=== PATIENT | female | born 1965 | race Two or more races ===

== ENCOUNTER 2020-10-11 22:34 | Emergency (ER) | payer OTHER, SELFPAY ==
[~2020-10-11] VITALS: Ht 152.4 cm; Wt 57.9 kg
--- NOTE | 2020-10-11 23:48 | NUR ---
PT AMBULATORY WITH STEADY GAIT TO ROOM
--- NOTE | 2020-10-11 23:48 | NUR ---
MEDICAL RECORDS CODER: PT. TO ROOM FROM LOBBY AT THIS TIME.
[2020-10-11 23:50] LABS: BASOPHILS % (AUTO) 1 % (0-1); EOSINOPHILS % (AUTO) 2 % (1-7); LYMPHOCYTES % (AUTO) 16 % (22-44); MEAN CORPUSCULAR HGB CONC 32.1 g/dL (32.4-35.8); MEAN PLATELET VOLUME 8.2 fL (7.4-10.4); MONOCYTES % (AUTO) 12 % (2-9); NEUTROPHILS % (AUTO) 70 % (42-75); PLATELET COUNT 123 x10^3/uL (130-400); RED BLOOD COUNT 4.19 x10^6/uL (3.82-5.3); RED CELL DISTRIBUTION WIDTH 19.6 % (9.6-15.2)
[2020-10-11 23:59] LABS: ALBUMIN 2.9 g/dL (3.4-5.0); ANION GAP 6 mmol/L (5-15); CALCIUM 8.5 mg/dL (8.5-10.1); CHLORIDE 95 mmol/L (98-107); CREATININE 4.08 mg/dL (0.55-1.02)
[2020-10-12 00:16] LABS: TROPONIN I 0.021 ng/mL (0.000-0.045)
[2020-10-12] MEDS ORDERED: LISINOPRIL 10 MG TABLET ONE (00:19)
[2020-10-12] MEDS ORDERED: LORazepam 1MG TABLET ONE (00:20)
[2020-10-12] MEDS ORDERED: LISINOPRIL 10 MG TABLET PO ONE (00:30)
[2020-10-12] MEDS ORDERED: LORazepam 1MG TABLET PO ONE (00:30)
[2020-10-12 01:04] VITALS: BP 208/93
--- NOTE | 2020-10-12 01:18 | NUR ---
PROVIDER MADE AWARE OF ELEVATED BP
--- NOTE | 2020-10-12 01:20 | NUR ---
BREAKFAST SUPERVISOR MADE AWARE OF ELEVATED BP AFTER ANIMAL SHELTER MANAGER AND RETAKING BP READING
--- NOTE | 2020-10-12 02:42 | NUR ---
FAMILY AND PT EDUCATED ON THE IMPORTANCE OF ESTABLISHING PCP TO BETTER MONITOR BP AND MAKE MED ADJUSTMENTS NEEDED TO BEST FIT PT NEEDS
== END 2020-10-12 02:44 | disposition home or self-care (01) ==
LOC: ED 23:00
DX: G47.09 Other insomnia (principal); G25.81 Restless legs syndrome; R07.89 Other chest pain; I10 Essential (primary) hypertension; E11.9 Type 2 diabetes mellitus without complications; Z99.2 Dependence on renal dialysis
CPT/HCPCS: 36415; 71045; 80048; 82040; 83880; 84484; 85025; 93005; 99285

== ENCOUNTER 2020-10-18 11:41 | Emergency (ER) | payer SELFPAY ==
--- NOTE | 2020-10-18 11:59 | NUR ---
EKG IN TRIAGE.
[2020-10-18 12:31] LABS: MEAN CORPUSCULAR HEMOGLOBIN 29.2 pg (27.0-34.8); MEAN CORPUSCULAR HGB CONC 31.6 g/dL (32.4-35.8); MEAN PLATELET VOLUME 9.6 fL (7.4-10.4); PLATELET COUNT 109 x10^3/uL (130-400); RED BLOOD COUNT 4.55 x10^6/uL (3.82-5.3); RED CELL DISTRIBUTION WIDTH 18.9 % (9.6-15.2)
[2020-10-18 12:39] LABS: ALANINE AMINOTRANSFERASE 43 U/L (12-78); ALBUMIN 2.9 g/dL (3.4-5.0); ANION GAP 11 mmol/L (5-15); CALCIUM 9.1 mg/dL (8.5-10.1); CHLORIDE 95 mmol/L (98-107); CREATININE 7.49 mg/dL (0.55-1.02)
[2020-10-18 12:43] LABS: ALKALINE PHOSPHATASE 257 U/L (45-117); TOTAL PROTEIN 7.9 g/dL (6.4-8.2); TROPONIN I < 0.015 ng/mL (0.000-0.045)
[2020-10-18 12:44] LABS: BILIRUBIN,TOTAL 0.5 mg/dL (0.2-1.0)
[2020-10-18 13:44] LABS: <PLATELET ESTIMATE> DECREASED; <PLT MORPHOLOGY> NORMAL PLT MORPH; ANISOCYTOSIS 1+; BASOS#(MANUAL) 0.12 x10^3/uL (0-0.1); BASOS% (MANUAL) 2 % (0-1); LYMPHS% (MANUAL) 20 % (22-44); MONOS% (MANUAL) 10 % (2-9); SEG#(MANUAL) 4.08 x10^3/uL (1.8-6.8); SEGS% (MANUAL) 68 % (42-75)
--- NOTE | 2020-10-18 14:12 | NUR ---
career representative: Pt ambulatory to room from lobby at this time.
--- NOTE | 2020-10-18 14:25 | NUR ---
SUDDEN ONSET OF CHEST PAIN WHILE RESTING LAST NIGHT. WORSE WITH POSITION CHANGES. DIALYSIS PT MWF. PT BENINESE SPEAKING ONLY. DAUGHTER ACTING GLOBAL ACCOUNT EXECUTIVE. PER DAUGHTER PT TO SEE CARDIOLOGY IN A FEW WEEK FOR SOME "HEART TESTS" AFTER PT WAS FOUND TO HAVE SMALL MUR MUR AT PCP. PT TO ROOM WITH STEADY GAIT. ATTACHED TO MONITORS. [facility] [place] [facility] [place]
[2020-10-18] MEDS ORDERED: ACETAMINOPHEN 500 MG TABLET ONE (15:25)
[2020-10-18] MEDS ORDERED: ACETAMINOPHEN 500 MG TABLET PO ONE (15:30)
--- NOTE | 2020-10-18 15:43 | NUR ---
CONTINUED ELEVATED B/P DISCUSSED WITH DR. MICHAEL. HE RESPONDED "SHE IS GOING TO HD, THEY WILL ADRESS THE ISSUE. WE RULED OUT ANY MAJOR CARDIAC ISSUE. SHE WILL BE OK GOING HOME IF YOU AGREE." PATIENT DISCHARGED AFTER THOROUGH DISCUSION ON IMPORTANCE OF F/U WITH PCP/SWIMMING POOL ATTENDANT AND RETURN TO ER IF NEEDED (STROKE PREVENTION) PATIENT/FAMILY-TEACH BACK SUCCESSFUL
[2020-10-18 15:46] VITALS: BP 193/93
== END 2020-10-18 15:47 | disposition home or self-care (01) ==
LOC: ED 14:40
DX: R07.89 Other chest pain (principal); I10 Essential (primary) hypertension; E11.9 Type 2 diabetes mellitus without complications
CPT/HCPCS: 36415; 71045; 80053; 83690; 84484; 85025; 93005; 99285

== ENCOUNTER 2020-12-17 23:46 | Inpatient (IN) | payer MEDICAID ==
[~2020-12-17] VITALS: Ht 152.4 cm; Wt 62.5 kg
--- NOTE | 2020-12-17 23:55 | NUR ---
EKG DONE IN TRIAGE.
[2020-12-18] VITALS (12 sets, daily range): BP systolic 129–207; BP diastolic 70–92
[2020-12-18 00:48] LABS: BASOPHILS % (AUTO) 0 % (0-1); EOSINOPHILS % (AUTO) 2 % (1-7); LYMPHOCYTES % (AUTO) 13 % (22-44); MEAN CORPUSCULAR HEMOGLOBIN 29.6 pg (27.0-34.8); MEAN CORPUSCULAR HGB CONC 32.9 g/dL (32.4-35.8); MEAN PLATELET VOLUME 9.9 fL (7.4-10.4); MONOCYTES % (AUTO) 10 % (2-9); NEUTROPHILS % (AUTO) 75 % (42-75); PLATELET COUNT 122 x10^3/uL (130-400); RED BLOOD COUNT 3.68 x10^6/uL (3.82-5.3); RED CELL DISTRIBUTION WIDTH 19.3 % (9.6-15.2)
[2020-12-18 01:02] LABS: ALANINE AMINOTRANSFERASE 42 U/L (12-78); ALBUMIN 2.5 g/dL (3.4-5.0); ANION GAP 12 mmol/L (5-15); CALCIUM 8.7 mg/dL (8.5-10.1); CHLORIDE 96 mmol/L (98-107); CREATININE 6.93 mg/dL (0.55-1.02)
[2020-12-18 01:19] LABS: ALKALINE PHOSPHATASE 257 U/L (45-117); BILIRUBIN,TOTAL 0.5 mg/dL (0.2-1.0); TOTAL PROTEIN 7.2 g/dL (6.4-8.2); TROPONIN I < 0.015 ng/mL (0.000-0.045)
[2020-12-18] MEDS ORDERED: FUROSEMIDE 20 MG/2 ML ONE (02:50)
[2020-12-18] MEDS ORDERED: SODIUM ZIRCONIUM CYCLOSILICATE 10 GM PO ONE (03:00)
[2020-12-18] MEDS ORDERED: FUROSEMIDE 20 MG/2 ML IV ONE (03:00)
[2020-12-18] MEDS ORDERED: DEXTROSE 50%, 50ML SYRINGE IVPush PRN (03:30)
[2020-12-18] MEDS ORDERED: DEXTROSE 4 GM TAB.CHEW PO PRN (03:30)
[2020-12-18] MEDS ORDERED: GLUCAGON 1 MG IM PRN (03:30)
[2020-12-18] MEDS ORDERED: POLYETHYLENE GLYCOL 17 GM PACKET PO PRN (03:30)
[2020-12-18] MEDS ORDERED: HYDROmorphone 2 MG/ML, 1ML IVPush PRN (03:30)
[2020-12-18] MEDS ORDERED: FUROSEMIDE 40 MG/4 ML IV ONE (03:30)
[2020-12-18] MEDS ORDERED: LABETALOL 5MG/ML, 20ML IVPush PRN (03:30)
--- NOTE | 2020-12-18 03:39 | NUR ---
Report to [facility]AN
[2020-12-18] MEDS: HEPARIN 5,000 UNITS/ML, 1ML SQ SCH ×3 (04:08→20:42)
[2020-12-18] MEDS: INSULIN LISPRO 100 UNITS/ML, PEN SQ-INSULIN SCH ×5 (04:51→22:23)
[2020-12-18] MEDS ORDERED: niFEDipine ER 30 MG TABLET.ER PO ONE (05:30)
[2020-12-18] MEDS ORDERED: hydrALAzine 20 MG/ML, 1ML ONE (06:34)
[2020-12-18] MEDS ORDERED: hydrALAzine 20 MG/ML, 1ML IV ONE (07:00)
[2020-12-18 07:31] LABS: BASOPHILS % (AUTO) 1 % (0-1); EOSINOPHILS % (AUTO) 2 % (1-7); LYMPHOCYTES % (AUTO) 20 % (22-44); MEAN CORPUSCULAR HGB CONC 32.5 g/dL (32.4-35.8); MEAN PLATELET VOLUME 9.5 fL (7.4-10.4); MONOCYTES % (AUTO) 8 % (2-9); NEUTROPHILS % (AUTO) 69 % (42-75); PLATELET COUNT 106 x10^3/uL (130-400); RED BLOOD COUNT 3.91 x10^6/uL (3.82-5.3); RED CELL DISTRIBUTION WIDTH 19.2 % (9.6-15.2)
[2020-12-18 07:34] LABS: ANION GAP 12 mmol/L (5-15); CALCIUM 9.1 mg/dL (8.5-10.1); CHLORIDE 97 mmol/L (98-107); CREATININE 7.03 mg/dL (0.55-1.02)
[2020-12-18] MEDS: SODIUM CHLORIDE FLUSH 10ML SYR IVF SCH ×2 (10:33→20:42)
[2020-12-18] MEDS: ACETAMINOPHEN 325 MG TABLET PO PRN ×3 (11:30→20:43)
[2020-12-18] MEDS ORDERED: ARANESP 60 MCG/ML **ESRD SQ SCH (11:30)
[2020-12-18] MEDS: hydrALAzine 20 MG/ML, 1ML IV PRN ×2 (11:31→20:42)
[2020-12-18] MEDS ORDERED: NIFE60TA13 PO (12:06)
[2020-12-18] MEDS ORDERED: CARV12.52 PO (12:06)
[2020-12-18] MEDS ORDERED: LOSA100T14 PO (12:06)
[2020-12-18] MEDS ORDERED: ATOR10TA9 PO (12:06)
[2020-12-18] MEDS ORDERED: GABA100C PO (12:06)
[2020-12-18] MEDS ORDERED: LISI-167 PO (12:06)
[2020-12-18] MEDS ORDERED: CLON0.1T22 PO (12:06)
[2020-12-19] VITALS (12 sets, daily range): BP systolic 110–202; BP diastolic 63–90
[2020-12-19] MEDS: hydrALAzine 20 MG/ML, 1ML IV PRN ×3 (01:03→16:45)
[2020-12-19] MEDS: MELATONIN 5 MG TABLET PO PRN ×2 (01:03→23:43)
[2020-12-19] MEDS: ACETAMINOPHEN 325 MG TABLET PO PRN (03:17)
[2020-12-19] MEDS: ONDANSETRON 2MG/ML, 2ML IVPush PRN (04:59)
[2020-12-19] MEDS ORDERED: CARVEDILOL 12.5 MG TABLET ONE (05:15)
[2020-12-19] MEDS: CARVEDILOL 12.5 MG TABLET PO SCH ×2 (05:25→16:45)
[2020-12-19] MEDS: HEPARIN 5,000 UNITS/ML, 1ML SQ SCH ×3 (05:25→20:20)
[2020-12-19 06:25] LABS: ANION GAP 8 mmol/L (5-15); CALCIUM 9.4 mg/dL (8.5-10.1); CHLORIDE 98 mmol/L (98-107); CREATININE 5.21 mg/dL (0.55-1.02)
[2020-12-19] MEDS ORDERED: niFEDipine ER 60 MG TABLET.ER PO SCH (09:00)
[2020-12-19] MEDS ORDERED: BUTALB/APAP/CAFFEINE 50MG/325MG/40MG PO PRN (09:00)
[2020-12-19] MEDS: GABAPENTIN 100 MG CAPSULE PO SCH (09:10)
[2020-12-19] MEDS: LOSARTAN 100 MG TAB PO SCH (09:10)
[2020-12-19] MEDS: INSULIN LISPRO 100 UNITS/ML, PEN SQ-INSULIN SCH ×4 (09:11→20:30)
[2020-12-19] MEDS: SODIUM CHLORIDE FLUSH 10ML SYR IVF SCH ×2 (09:14→20:20)
[2020-12-19] MEDS: ATORVASTATIN 10 MG TABLET PO SCH (20:19)
[2020-12-20 02:54] VITALS: BP 131/71
[2020-12-20 06:13] LABS: ALBUMIN 2.6 g/dL (3.4-5.0); ANION GAP 9 mmol/L (5-15); CALCIUM 8.8 mg/dL (8.5-10.1); CHLORIDE 99 mmol/L (98-107)
[2020-12-20 06:14] LABS: CREATININE 6.95 mg/dL (0.55-1.02)
[2020-12-20] MEDS: CARVEDILOL 12.5 MG TABLET PO SCH ×2 (06:33→16:09)
[2020-12-20] MEDS: HEPARIN 5,000 UNITS/ML, 1ML SQ SCH ×3 (06:33→20:45)
[2020-12-20 06:37] VITALS: BP 136/75
[2020-12-20] MEDS ORDERED: CINACALCET 30 MG TABLET PO SCH (09:00)
[2020-12-20] MEDS: GABAPENTIN 100 MG CAPSULE PO SCH (09:16)
[2020-12-20] MEDS: LOSARTAN 100 MG TAB PO SCH (09:16)
[2020-12-20] MEDS: SODIUM CHLORIDE FLUSH 10ML SYR IVF SCH ×2 (09:16→20:46)
[2020-12-20] MEDS: INSULIN LISPRO 100 UNITS/ML, PEN SQ-INSULIN SCH ×4 (09:17→20:47)
[2020-12-20 14:58] VITALS: BP 188/89
[2020-12-20] MEDS: ONDANSETRON 2MG/ML, 2ML IVPush PRN (16:10)
[2020-12-20 16:43] VITALS: BP 161/74
[2020-12-20 18:30] VITALS: BP_SYST 138; BP_SYST 152; BP_DIAS 70; BP_DIAS 78
[2020-12-20] MEDS: ATORVASTATIN 10 MG TABLET PO SCH (20:45)
[2020-12-20] MEDS: niFEDipine ER 90 MG TAB.ER.24 PO SCH (20:49)
[2020-12-21 01:39] VITALS: BP 149/71
[2020-12-21] MEDS: CARVEDILOL 12.5 MG TABLET PO SCH ×2 (05:33→18:01)
[2020-12-21] MEDS: HEPARIN 5,000 UNITS/ML, 1ML SQ SCH ×2 (05:33→12:22)
[2020-12-21 06:37] LABS: ALBUMIN 2.8 g/dL (3.4-5.0); ANION GAP 6 mmol/L (5-15); CALCIUM 8.5 mg/dL (8.5-10.1); CHLORIDE 96 mmol/L (98-107); CREATININE 5.33 mg/dL (0.55-1.02)
[2020-12-21 07:30] VITALS: BP 135/65
[2020-12-21] MEDS: INSULIN LISPRO 100 UNITS/ML, PEN SQ-INSULIN SCH ×3 (08:05→16:11)
[2020-12-21] MEDS: GABAPENTIN 100 MG CAPSULE PO SCH (08:23)
[2020-12-21] MEDS: SODIUM CHLORIDE FLUSH 10ML SYR IVF SCH (08:23)
[2020-12-21 12:13] VITALS: BP 173/73
[2020-12-21] MEDS: LOSARTAN 100 MG TAB PO SCH (15:00)
[2020-12-21] MEDS: niFEDipine ER 90 MG TAB.ER.24 PO SCH (15:01)
[2020-12-21 16:01] VITALS: BP 186/70
[2020-12-21] MEDS ORDERED: CLON0.2T PO (16:13)
[2020-12-21] MEDS ORDERED: HYDR100T25 PO (16:13)
[2020-12-21] MEDS ORDERED: CINA30TA2 PO (16:13)
[2020-12-21] MEDS ORDERED: NIFE90TA53 PO (16:13)
[2020-12-21 17:58] VITALS: BP 156/73
== END 2020-12-21 19:23 | disposition home or self-care (01) | DRG 199 ==
LOC: ED 12-18 → EDIP 12-18 03:50 → 4WST 12-18 03:58
PROVIDERS: ADMIT Internal Medicine; ATTEND Internal Medicine
PROC: 5A1D70Z Performance of Urinary Filtration, Intermittent, Less than 6 Hours Per Day (ICD-10-PCS; principal; 2020-12-19)
PROC: 5A1D70Z Performance of Urinary Filtration, Intermittent, Less than 6 Hours Per Day (ICD-10-PCS; 2020-12-20)
DX: I16.0 Hypertensive urgency (principal); D69.6 Thrombocytopenia, unspecified; N18.6 End stage renal disease; D63.1 Anemia in chronic kidney disease; E87.1 Hypo-osmolality and hyponatremia; I12.0 Hypertensive chronic kidney disease with stage 5 chronic kidney disease or end stage renal disease; E11.22 Type 2 diabetes mellitus with diabetic chronic kidney disease; E11.65 Type 2 diabetes mellitus with hyperglycemia; E87.5 Hyperkalemia; K59.00 Constipation, unspecified; Z99.2 Dependence on renal dialysis
CPT/HCPCS: 36415; 71045; 76705; 80048; 80053; 80069; 82306; 82962; 83735; 83880; 83970; 84100; 84484; 85025; 90935; 93005; 96374; 96375; G0378; J0882; J1644; J1940; J2405; J0360; J1815